=== PATIENT | male | born 1995 | race Caucasian/White ===

== ENCOUNTER 2022-02-12 10:25 | Outpatient (CLI) | payer BC, SELFPAY ==
--- NOTE | ~2022-02-12 | XR_ITS ---
EXAMINATION: XR chest 2V 02/12/2022 10:46 INDICATION: Wheezing. Pneumonia. PROCEDURE: 2 view chest COMPARISON: No prior studies for comparison. FINDINGS: The lungs are clear. The cardiomediastinal silhouette is within normal limits. There are no pleural effusions. There is no pneumothorax suspected. IMPRESSION: 1: NO ACUTE CARDIOPULMONARY DISEASE. Reviewed, dictated and finalized at location B.
== END 2022-02-12 10:26 | disposition home or self-care (01) ==
PROVIDERS: PCP Family Medicine; Visit Provider Physician Assistant
DX: R06.2 Wheezing (principal)
CPT/HCPCS: 71046

== ENCOUNTER 2023-07-30 08:53 | Outpatient (CLI) | payer BC, SELFPAY ==
--- NOTE | 2023-08-09 21:30 | WPDHOMESLEEP ---
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 The patient occasionally awakens from sleep short of breath. He occasionally awakens at night with heartburn, belching or cough. He constantly snores loudly enough that others complain. He frequently has trouble sleeping when he has a cold. He denies waking up gasping for air throughout the night. He frequently has breathing problems at night observed by himself or others. He constantly sweats excessively at night. He denies having heart palpitations or irregular heartbeats during the night. He constantly falls asleep during the day but rarely while driving. He denies sleep paralysis and cataplexy. He rarely has trouble at school or work due to sleepiness. He rarely experiences vivid dreamlike scenes upon awakening or falling asleep. He denies feeling afraid of going to sleep. He rarely has nightmares. He occasionally remembers his dreams. He frequently has thoughts racing through his mind. He rarely feels sad or depressed. He occasionally has anxiety. He denies having muscular tension. He constantly notices parts of his body jerk. He constantly kicks during the night. He occasionally has crawling and aching feelings in his legs and frequently has leg pain during the night. He denies grinding his teeth during sleep and denies awakening with morning jaw pain. He is rarely bothered by pain during the day and rarely awakened by pain during the night. He frequently wakes up feeling stiff in the morning. He occasionally wakes up with sore or achy muscles. He frequently wakes up with pain in the neck, spine and other joints. He goes to bed at 9:00 a.m. on weekdays and at 9:00 p.m. on weekends. It takes him 10-15 minutes to fall asleep. He wakes up 3-5 times throughout the night to urinate or get a drink. It takes him 30-60 minutes to fall back asleep. He wakes up between noon to 2:00 p.m. on weekdays and between 1-3 a.m. on the weekends. He typically gets 7-8 hours of sleep per night. He will stay in bed for 30-60 minutes after waking up in the morning. He currently lives with his and 4 children. He denies consuming any caffeinated beverages within 2 hours of bedtime. He denies engaging in physical exercise before bedtime. He will watch television before falling asleep. He will take naps in the afternoon or the evening but they are not refreshing. He consumes 2-3 caffeinated beverages per day. He consumes alcohol socially on the weekends. He denies tobacco and recreational drug use. [facility] Family History Family History Father Diabetes mellitus Hypertension Mother Depression Social History Social History Social History: Smoking status: Former smoker Tobacco type: smokeless tobacco Smokeless tobacco user: other Additional smoking assessment comments: Nicotine pouches Alcohol intake: current Alcohol use details: Socially Substance use: never Substance use type: does not use Lack of Transportation: No Lack of Food: Never True Current Housing: I Have Housing Concerned About Future Housing: No Difficulty Paying Gas/Electric Bills: No Difficulty Paying for Meds: No Currently Unemployed: No Education: Bachelor's Degree Difficulty w/ Childcare or Family Care: No Living arrangements: with family Occupation/Education: occupation 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
[2023-08-09 21:31] VITALS: BMI 29.8
== END 2023-07-31 07:30 | disposition home or self-care (01) ==
LOC: ANHCSM 08:54
PROVIDERS: PCP Family Medicine; Visit Provider Physician Assistant
DX: G47.10 Hypersomnia, unspecified (principal); R06.83 Snoring
CPT/HCPCS: 95800

== ENCOUNTER 2024-08-05 13:30 | Outpatient (CLI) | payer BC, SELFPAY ==
--- NOTE | ~2024-08-05 | US_ITS ---
EXAMINATION: US soft tissue head and neck DATE: 08/05/2024 13:51 INDICATION: Sore swelling/lump in the left preauricular and submandibular regions. TECHNIQUE: Multiple grayscale and Doppler ultrasound images of the left submandibular and preauricula r regions of concern were obtained as well as the contralateral right subarticular and perirectal reg ions for comparison. COMPARISON: None FINDINGS: There are a 3 left preauricular lymph nodes with central echogenic fatty real. The smaller is at the upper limits of normal measures 9 x 8 x 8 mm and the larger measures 1.9 x 1.6 x 1.6 cm. There are al so 3 mildly prominent but still normal-sized left submandibular lymph nodes, the largest measuring 1. 6 x 1.2 x 0.7 cm. The largest contralateral right submandibular lymph node is 1.3 x 0.8 x 0.6 cm with thinner peripheral cortex and on the left. IMPRESSION: 1. A few asymmetrically enlarged left submandibular and preauricular lymph nodes, the largest a pretr acheal lymph node measuring 1.9 x 1.6 x 1.6 cm and the remainder still within normal limits. Given th e reported corresponding tenderness at these are most likely reactive although differential includes metastatic disease or lymphoma. Depending on level of clinical concern could consider either core nee dle biopsy or clinical follow-up with repeat imaging and/or biopsy should there be no improvement. Reviewed, dictated and finalized at location A. IMPRESSION: 1. A few asymmetrically enlarged left submandibular and preauricular lymph node s, the largest a pretracheal lymph node measuring 1.9 x 1.6 x 1.6 cm and the re mainder still within normal limits. Given the reported corresponding tenderness at these are most likely reactive although differential includes metastatic di sease or lymphoma. Depending on level of clinical concern could consider either core needle biopsy or clinical follow-up with repeat imaging and/or biopsy crow uld there be no improvement.
== END 2024-08-05 13:31 | disposition home or self-care (01) ==
LOC: MICIMG 13:31
PROVIDERS: PCP Family Medicine; Visit Provider Student in an Organized Health Care Education/Training Program
DX: R59.1 Generalized enlarged lymph nodes (principal)
CPT/HCPCS: 76536